=== PATIENT | female | born 1990 | race Caucasian/White ===

== ENCOUNTER 2017-01-15 05:19 | Day surgery (SDC) | payer OTHER ==
[2017-01-12 11:39] LABS: HEMOGLOBIN 14.9 g/dL (12-16); MCH 29.3 pg (26.0-34.0); MCHC 33.1 g/dL (31.0-37.0); MCV 88.4 fL (80.0-100.0); MEAN PLATELET VOLUME 10.6 fL (7.4-10.4); RBC 5.09 10x6/uL (4.00-5.40); RDW 12.2 % (11.5-14.5); WBC 6.8 10x3/uL (4.8-10.8)
[~2017-01-15] VITALS: Ht 167.6 cm; Wt 103.4 kg
[~2017-01-15 05:19] MED LIST: LO LOESTRIN FE PO; OMEPRAZOLE DR 20 MG PO; OMEPRAZOLE20 M1 PO; PROZAC20 MG PO
[2017-01-15] MEDS ORDERED: MULTIPLE VITAMI1 TA1 PO (05:38)
[2017-01-15 05:39] VITALS: BP 126/86; Ht 167.6 cm; Wt 103.4 kg
[2017-01-15 06:01] LABS: HCG URINE NEGATIVE (NEGATIVE)
[2017-01-15] MEDS ORDERED: HYDROCODON-ACE1 EAC7 PO (08:28)
--- NOTE | 2017-01-15 09:26 | NUR ---
0905-RECD TO ROOM FROM PACU. DROWSY. DENIES PAIN. TAKING ICE CHIPS. RESP WITH EASE. IV PATENT R AC
--- NOTE | 2017-01-15 09:37 | OP ---
PATIENT NAME: YULIA SOLANO MEDICAL RECORD: [id number] :89 LOCATION:D[facility] ADMISSION DATE: SURGEON: DAPHNE TODD MD DATE OF OPERATION: 01/15/2017 SURGEON: Dr. Daphne Todd. PREOPERATIVE DIAGNOSES: 1. Biliary dyskinesia. 2. Right upper quadrant pain. POSTOPERATIVE DIAGNOSES: 1. Biliary dyskinesia. 2. Right upper quadrant pain. PROCEDURE PERFORMED: Laparoscopic cholecystectomy. ANESTHESIA: General. COMPLICATIONS: None. SPECIMENS: Gallbladder. Case was clean contaminated. ESTIMATED BLOOD LOSS: 20 cc. OPERATIVE COURSE: After consent was obtained, the patient was taken to the operating room and placed in the supine position on the operating table. Next, general anesthesia was given via endotracheal intubation after a timeout was taken to confirm the correct patient and procedure. The abdomen was prepped and draped in typical sterile fashion. Local anesthetic was injected just above the umbilicus. A stab incision was made with 11-blade scalpel. Using a 5-mm bladeless optical trocar, the abdomen was entered under direct laparoscopic vision. Adequate pneumoperitoneum was achieved. The abdominal cavity was inspected. No evidence of bowel injury. No evidence of bleeding. The patient was then placed in the steep reverse Trendelenburg position. All remaining trocars were placed after the administration of local anesthetic, two 5-mm trocars in the right upper quadrant and 11-mm trocar in the subxiphoid position. The fundus of the gallbladder was grasped and retracted cephalad. The infundibulum was grasped and retracted laterally. The peritoneum was incised using electrocautery. Blunt dissection was performed until the critical view was obtained. The cystic duct lateral, cystic artery medial, liver in the posterior window. Three clips were placed in the proximal cystic duct, 1 clip distal and 2 clips were placed in the proximal cystic artery. The duct and artery were then transected with laparoscopic Metzenbaum scissors. The remaining portion of the gallbladder was then dissected off the liver bed using electrocautery. Once complete, it was grasped with the tenaculum and removed through the 11-mm trocar and sent for permanent pathology. The operative site was then copiously irrigated and suctioned. Careful attention was paid to hemostasis, which was obtained in the liver bed using electrocautery. At this time, the abdominal cavity was irrigated and suctioned. The operative site was inspected. There was [address] in the duct, [address] in the artery. There was no evidence of bowel injury. No evidence of bleeding, no evidence of bile leak. At this time, all remaining instruments were removed. OPERATIVE REPORT [id number] YULIA SOLANO The abdomen was desufflated. Trocars were removed. Skin was closed with 4-0 Monocryl, Mastisol and Steri-Strips. At the end of the case, all needle and instrument counts were correct. No complications occurred. The patient was extubated and transferred to the PACU in stable condition. TRANSINT:[id number] Voice Confirmation ID: [id number] DOCUMENT ID: [id number] DAPHNE TODD MD at 0937 CC: [id number] DICTATION DATE: 01/15/17 0833 [employer]INT FINISHING WORKER: 01/15/17 [address] [id number]
--- NOTE | 2017-01-15 09:56 | NUR ---
0950 DR. PEREZ WOMACK.
--- NOTE | 2017-01-15 12:25 | NUR ---
ROOM CHECK. STATES NAUSEA IS BETTER. DENIES NEED TO VOID.
== END 2017-01-15 13:40 | disposition home or self-care (01) ==
LOC: D.OPS 05:19 → D.PAN 07:30 → D.OPS 13:40
PROVIDERS: Anesthesiology; Surgery
DX: K82.8 Other specified diseases of gallbladder (principal)